=== PATIENT | male | born 1970 | race Caucasian/White ===

== ENCOUNTER 2017-04-07 13:48 | Emergency (ER) | payer OTHER ==
[2017-04-07 13:57] VITALS: RESP 18; TEMP 97.7
--- NOTE | 2017-04-07 14:29 | EDPHY ---
H & P Time Seen by Provider: 04/07/17 14:01 HPI/ROS: CHIEF COMPLAINT: Right toe pain History by patient HISTORY OF PRESENT ILLNESS: 47-year-old otherwise healthy man presents complaining of pain at the base of his right toe which began 2 days ago and has been getting increasingly worse. Patient was in a hockey tournament 3 days ago and was fine afterwards and able to walk and there was no clear direct trauma to his foot at that time. However when he woke up the next day was painful and now it is painful to bear weight. He has taken some acetaminophen with some relief. He has used his 's cryo boot that she had for foot surgery with good relief. REVIEW OF SYSTEMS: As in HPI, and all other systems reviewed and are negative Smoking Status: Never smoked Physical Exam: General Appearance: Alert and no distress. Eyes: Pupils equal and round no injection. Musculoskeletal: Neck is supple and nontender. Extremities: Right foot with minimal erythema around distal 1st metatarsal with no swelling, positive tenderness on distal and of 1st metatarsal, full range of motion of 1st MTP joint without pain passively but somewhat limited actively, no great toe tenderness or swelling. Distal sensation is intact, distally cap refills less than 3 seconds, DP pulses 2+ and equal to the left. Skin: No rashes or lesions except as described above. Constitutional: Initial Vital Signs Temperature (C) 36.5 C 04/07/17 13:54 Heart Rate 78 04/07/17 13:54 Respiratory Rate 18 04/07/17 13:54 Blood Pressure 151/87 H 04/07/17 13:54 O2 Sat (%) 94 04/07/17 13:54 O2 Delivery Mode Room Air Allergies/Adverse Reactions: No Known Allergies Allergy (Verified 04/07/17 13:57) Home Medications: Medication Instructions Recorded NK [No Known Home Meds] 04/07/17 MDM/Departure - MDM Imaging: I viewed and interpreted images myself ED Course/Re-evaluation: 47-year-old man presents with pain at the distal end of his 1st nurse on his left foot after playing hockey tournament this weekend. X-ray shows no evidence of fracture. Exam is just minimal redness and is not consistent with gout or joint involvement at this time. I recommend trial of ibuprofen and ice. We discussed return precautions. - Depart Disposition: Home, Routine, Self-Care Clinical Impression: Toe pain, left Condition: Good Additional Instructions: You were seen by Dr. Sri Talbert today. Your x-ray showed no evidence of fracture. I recommended taking ibuprofen 400 mg 4 times a day for pain and swelling. You may continue icing your toe. Please follow up with primary care physician if symptoms persist. Return if you get increased redness, swelling, unable to bear weight or fever or other worsening Return for any worsening or new concerns. Referrals: NONE *PRIMARY CARE P,. [Primary Care Provider] - As per Instructions
[2017-04-07 14:59] VITALS: BP 118/62; PULSE 62; O2SAT 97
== END 2017-04-07 14:58 | disposition home or self-care (01) ==
LOC: CED 13:48
DX: M79.675 Pain in left toe(s) (principal)
CPT/HCPCS: 73630-PO